=== PATIENT | female | born 1995 | race Two or more races ===

== ENCOUNTER 2019-03-06 01:27 | Emergency (ER) | payer SELFPAY ==
[~2019-03-06] VITALS: Ht 165.1 cm; Wt 55.0 kg
[2019-03-06] MEDS ORDERED: SODIUM CHLORIDE 0.9% 1,000 ML IV ONE (02:18)
[2019-03-06 02:19] VITALS: BP 122/79
[2019-03-06] MEDS ORDERED: ACETAMINOPHEN 325MG TABLET PO ONE (02:30)
== END 2019-03-06 04:10 | disposition left against medical advice (07) ==
LOC: ER 01:59
DX: S02.82XA Fracture of other specified skull and facial bones, left side, initial encounter for closed fracture (principal); S02.2XXA Fracture of nasal bones, initial encounter for closed fracture; S00.81XA Abrasion of other part of head, initial encounter; J45.909 Unspecified asthma, uncomplicated; F32.9 Major depressive disorder, single episode, unspecified; F17.210 Nicotine dependence, cigarettes, uncomplicated; F14.10 Cocaine abuse, uncomplicated; F12.10 Cannabis abuse, uncomplicated; F10.10 Alcohol abuse, uncomplicated; Y90.9 Presence of alcohol in blood, level not specified; V03.10XA Pedestrian on foot injured in collision with car, pick-up truck or van in traffic accident, initial encounter; Y93.89 Activity, other specified; Y92.488 Other paved roadways as the place of occurrence of the external cause
CPT/HCPCS: 70450; 70486; 72125; 81025; 99284; J7030; Z7610